=== PATIENT | male | born 1960 | race Caucasian/White ===

== ENCOUNTER 2018-01-13 10:02 | Outpatient (CLI) | payer OTHER ==
[2018-01-13] MEDS: IOHEXOL 300 MG/ML 10ML VIAL. IT (11:19)
== END 2018-01-13 12:15 | disposition home or self-care (01) ==
LOC: RAD 10:02
DX: M47.892 Other spondylosis, cervical region (principal); M50.31 Other cervical disc degeneration, high cervical region; M51.27 Other intervertebral disc displacement, lumbosacral region
CPT/HCPCS: 72126; 72132; 72270; Q9967

== ENCOUNTER 2018-05-06 11:02 | Day surgery (SDC) | payer OTHER ==
[2018-05-06] MEDS ORDERED: fentaNYL PF VIAL 100 MCG/2 ML VIAL ×2 (11:12→14:39)
[2018-05-06] MEDS ORDERED: ONDANSETRON PF 4 MG/2 ML VIAL. (11:12)
[2018-05-06] MEDS ORDERED: ROCURONIUM 50 MG/5 ML VIAL. (11:12)
[2018-05-06] MEDS ORDERED: LIDOCAINE 2% PF Vial for OR 5 ML VIAL. (11:12)
[2018-05-06] MEDS ORDERED: DEXAMETHASONE SOD PHOS 20 MG/5 ML VIAL. (11:12)
[2018-05-06] MEDS ORDERED: FAMOTIDINE 20 MG/2 ML VIAL (11:12)
[2018-05-06] MEDS ORDERED: PROPOFOL 20 ML IV (11:12)
[2018-05-06] MEDS ORDERED: fentaNYL PF VIAL 100 MCG/2 ML VIAL IV (11:30)
[2018-05-06] MEDS ORDERED: PROCHLORPERAZINE 10 MG/2 ML VIAL. IV (11:30)
[2018-05-06] MEDS ORDERED: LIDOCAINE 1% PF 2 ML VIAL. ID (11:30)
[2018-05-06] MEDS ORDERED: ONDANSETRON PF 4 MG/2 ML VIAL. IV (11:30)
[2018-05-06] MEDS ORDERED: MORPHINE SULFATE 2 MG/ML DISP.SYRIN. IV (11:30)
[2018-05-06] MEDS: IV RINGERS,LACTATED 1000ML 1,000 ML IV (11:59)
[2018-05-06] MEDS ORDERED: ceFAZolin 2GM PREMIX 2 GM/50 ML BAG IV (12:00)
[2018-05-06 12:03] LABS: POC GLUCOSE 135 mg/dL (70-99)
[2018-05-06] MEDS ORDERED: ROPIVacaine 0.5% PF 30 ML VIAL. (12:04)
[2018-05-06] MEDS: EPINEPHrine VIAL 30 MG/30 ML VIAL (13:03)
[2018-05-06] MEDS ORDERED: KETOROLAC 30 MG/ML INJ FOR OR. INJ (13:15)
[2018-05-06] MEDS ORDERED: NEOSTIGMINE METHYLSULFATE 5 MG/5 ML SYRINGE. (13:19)
[2018-05-06] MEDS ORDERED: GLYCOPYRROLATE 1 MG/5 ML VIAL. (13:19)
[2018-05-06 13:52] LABS: POC GLUCOSE 131 mg/dL (70-99)
[2018-05-06] MEDS ORDERED: HYDROcodone/APAP 7.5/325MG 1 TAB TABLET (14:44)
[2018-05-06] MEDS: fentaNYL PF VIAL 100 MCG/2 ML VIAL IV ×2 (14:47→14:59)
[2018-05-06] MEDS: HYDROcodone/APAP 7.5/325MG 1 TAB TABLET PO (14:47)
[2018-05-06] MEDS ORDERED: SEVOFLURANE 31 TO 60 MINUTES. IH (15:30)
== END 2018-05-06 15:37 | disposition home or self-care (01) ==
LOC: SURG 11:02
DX: S43.432A Superior glenoid labrum lesion of left shoulder, initial encounter (principal); I10 Essential (primary) hypertension; E11.9 Type 2 diabetes mellitus without complications; Z98.890 Other specified postprocedural states; Z80.6 Family history of leukemia; Z87.891 Personal history of nicotine dependence; F12.10 Cannabis abuse, uncomplicated; Z79.899 Other long term (current) drug therapy; Z79.84 Long term (current) use of oral hypoglycemic drugs; Z87.442 Personal history of urinary calculi; X58.XXXA Exposure to other specified factors, initial encounter; Y93.89 Activity, other specified; Y92.89 Other specified places as the place of occurrence of the external cause; Y99.8 Other external cause status; F41.9 Anxiety disorder, unspecified; F32.9 Major depressive disorder, single episode, unspecified
CPT/HCPCS: 29823; 82962; A7015; J0171; J0690; J1100; J1885; J2001; J2405; J2704; J2710; J2795; J3010; J3490; J7120; S0028